=== PATIENT | female | born 1945 | race Caucasian/White ===

== ENCOUNTER 2018-10-12 12:32 | Emergency (ER) | payer MEDICARE, BC ==
[2018-10-12] MEDS ORDERED: Benzocaine 20% Topical Spray UD MUCMEM ONE (12:48)
[2018-10-12] MEDS ORDERED: Lidocaine 2% Viscous Solution 15 ML Cup PO ONE (12:48)
--- NOTE | 2018-10-12 12:52 | EDM.PDOC ---
ED HPI GENERAL MEDICAL PROBLEM - General Chief Complaint: ENT Problem Stated Complaint: TOOTH PAIN Time Seen by Provider: 10/12/18 12:40 Source of Information: Reports: Patient History Limitations: Reports: No Limitations - History of Present Illness INITIAL COMMENTS - FREE TEXT/NARRATIVE: History of present illness: []Patient had a temporary Put on her right upper molar area 2 days ago she is having severe pain in her upper cheek. She has not had any fevers or purulent drainage from her gums but is very uncomfortable. She denies any fevers or facial swelling. Review of systems: As per history of present illness and below otherwise all systems reviewed and negative. Past medical history: As per history of present illness and as reviewed below otherwise noncontributory. Surgical history: As per history of present illness and as reviewed below otherwise noncontributory. Social history: No reported history of drug or alcohol abuse. Family history: As per history of present illness and as reviewed below otherwise noncontributory. Physical exam: General: Well developed, well nourished in NAD HEENT: Atraumatic, normocephalic, pupils reactive, negative for conjunctival pallor or scleral icterus, mucous membranes moist, throat clear, neck supple, nontender, trachea midline. Lungs: Clear to auscultation, breath sounds equal bilaterally, chest nontender. Heart: S1S2, regular, negative for clicks, rubs, or JVD. Abdomen: NABS, Soft, nondistended, nontender. Negative for masses or hepatosplenomegaly. Negative for costovertebral tenderness. Pelvis: Stable nontender. Genitourinary: Deferred. Rectal: Deferred. Extremities: Atraumatic, negative for cords or calf pain. Neurovascular unremarkable. Neuro: Awake, alert, oriented. Cranial nerves II through XII unremarkable. Cerebellum unremarkable. Motor and sensory unremarkable throughout. Exam nonfocal. Skin:warm and dry Diagnostics: None Therapeutics: Dental balls ED Course: Stable Impression: Dental pain Prescriptions: Clindamycin, dental balls given here from the ED Plan: Follow-up with dentist Definitive disposition and diagnosis as appropriate pending reevaluation and review of above. - Related Data Allergies Allergy/AdvReac Type Severity Reaction Status Date / Time No Known Allergies Allergy Verified 10/12/18 12:48 Home Meds: Home Meds Clindamycin HCl 300 mg PO TID #30 capsule 10/12/18 [Rx] ED ROS ENT - Review of Systems Review Of Systems: See Below ED EXAM, ENT - Physical Exam Exam: See Below Course - Vital Signs Last Recorded V/S: Last Vital Signs Temp 98.4 F 10/12/18 12:45 Pulse 90 10/12/18 12:45 Resp 18 10/12/18 12:45 BP 96/63 10/12/18 12:45 Pulse Ox 94 L 10/12/18 12:45 - Orders/Labs/Meds Meds: Medications Discontinued Medications Generic Name Dose Route Start Last Admin Trade Name Freq PRN Reason Stop Dose Admin Benzocaine 2 each 10/12/18 12:48 Hurricaine One 20% MUCMEM 10/12/18 12:49 ONETIME ONE Lidocaine HCl 15 ml 10/12/18 12:48 Xylocaine 2% Viscous PO 10/12/18 12:49 ONETIME ONE Departure - Departure Time of Disposition: 12:51 Disposition: Home, Self-Care 01 Condition: Good Clinical Impression: Pain, dental Clinical Impression: (Ruled Out): Dental implant pain - Discharge Information *PRESCRIPTION DRUG MONITORING PROGRAM REVIEWED*: No *COPY OF PRESCRIPTION DRUG MONITORING REPORT IN PATIENT BILL: No Prescriptions: Clindamycin HCl 300 mg PO TID #30 capsule Referrals: PCP,Unknown [Primary Care Provider] - Forms: ED Department Discharge
== END 2018-10-12 13:03 | disposition home or self-care (01) ==
LOC: MW.ED 12:32
DX: K08.89 Other specified disorders of teeth and supporting structures (principal)
CPT/HCPCS: 99282; A9270